=== PATIENT | male | born 1935 | race Caucasian/White ===

== ENCOUNTER 2018-01-23 16:32 | Inpatient (IN) | payer MEDICARE ==
[2018-01-23 18:38] LABS: APPEARANCE, URINE HAZY (CLEAR); BACTERIA, URINE AUTO NEGATIVE (NEGATIVE); BILIRUBIN, URINE AUTO NEGATIVE (NEGATIVE); BLOOD, URINE BLOOD NEGATIVE (NEGATIVE); COLOR, URINE YELLOW (YELLOW); GLUCOSE, URINE (UA) AUTO NEGATIVE (NEGATIVE); KETONE, URINE AUTO NEGATIVE (NEGATIVE); LEUKOCYTE ESTERASE, URINE AUTO NEGATIVE (NEGATIVE); MUCUS, URINE SMALL (NEGATIVE); NITRITE, URINE AUTO NEGATIVE (NEGATIVE); PROTEIN, URINE AUTO NEGATIVE (NEGATIVE); RBC, URINE AUTO 2 /HPF (0-3); SPECIFIC GRAVITY URINE AUTO 1.018 (1.002-1.035); SQUAMOUS EPITHELIAL CELL UR AU 0 /HPF (0-6); UROBILINOGEN, URINE AUTO 0.2 mg/dL (0.0-2.0); WBC, URINE AUTO 4 /HPF (0-3)
[2018-01-23] MEDS: SINEMET 25-100 MG TAB PO (20:55)
[2018-01-23] MEDS: lamoTRIgine 100MG TAB PO (20:55)
[2018-01-23] MEDS: rOPINIRole 1MG TAB PO (20:55)
[2018-01-23] MEDS: GABAPENTIN 400 MG CAP PO (20:55)
[2018-01-23] MEDS: ATORVASTATIN 20 MG TAB PO (20:55)
[2018-01-23] MEDS: PRIMIDONE 250 MG TAB PO (20:55)
[2018-01-24 07:07] LABS: BASO # 0.1 10^3/uL (0.0-0.2); EOS # 0.6 10^3/uL (0.0-0.50); EOS % 8.9 % (0.0-3.0); HEMATOCRIT 34.7 % (42.0-52.0); HEMOGLOBIN 11.7 g/dl (13.5-17.5); IMMATURE GRANULOCYTE % 0.6 % (0-3.0); LYMPH # 1.4 10^3/uL (1.5-4.5); LYMPH % 22.3 % (24.0-44.0); MEAN CORPUSCULAR HEMOGLOBIN 32.1 pg (27.0-33.0); MEAN CORPUSCULAR HGB CONC 33.7 g/dl (32.0-36.5); MEAN CORPUSCULAR VOLUME 95.3 fl (80.0-96.0); MONO # 0.7 10^3/uL (0.0-0.8); MONO % 11.6 % (0.0-5.0); NEUTROPHILS # 3.4 10^3/uL (1.8-7.7); NEUTROPHILS % 55.6 % (36.0-66.0); PLATELET COUNT, AUTOMATED 306 10^3/uL (150-450); RED BLOOD COUNT 3.64 10^6/uL (4.30-6.10); RED CELL DISTRIBUTION WIDTH 13.3 % (11.5-14.5); WHITE BLOOD COUNT 6.2 10^3/uL (4.0-10.0)
[2018-01-24 07:28] LABS: ALBUMIN 3.5 GM/DL (3.2-5.2); ALBUMIN/GLOBULIN RATIO 0.97 (1.00-1.93); ALKALINE PHOSPHATASE 96 U/L (45-117); ALT/SGPT 30 U/L (12-78); ANION GAP 9 MEQ/L (8-16); AST/SGOT 65 U/L (7-37); BILIRUBIN,TOTAL 0.4 MG/DL (0.2-1.0); BLOOD UREA NITROGEN 44 MG/DL (7-18); CALCIUM LEVEL 8.8 MG/DL (8.8-10.2); CARBON DIOXIDE LEVEL 26 MEQ/L (21-32); CHLORIDE LEVEL 108 MEQ/L (98-107); GLUCOSE, FASTING 99 MG/DL (70-100); POTASSIUM SERUM 3.9 MEQ/L (3.5-5.1); SODIUM LEVEL 143 MEQ/L (136-145); TOTAL PROTEIN 7.1 GM/DL (6.4-8.2)
[2018-01-24] MEDS: GABAPENTIN 400 MG CAP PO ×2 (09:17→20:11)
[2018-01-24] MEDS: FENOFIBRATE 145 MG TAB (TRICOR) PO (09:17)
[2018-01-24] MEDS: SINEMET 25-100 MG TAB PO ×4 (09:17→20:11)
[2018-01-24] MEDS: MULTIVITAMINS/MINERALS THERAP 1 TAB PO (09:17)
[2018-01-24] MEDS: SENOKOT S TAB PO (09:17)
[2018-01-24] MEDS: rOPINIRole 1MG TAB PO ×4 (09:17→20:11)
[2018-01-24] MEDS: amLODIPine 10 MG TAB PO (09:17)
[2018-01-24] MEDS: lamoTRIgine 100MG TAB PO ×2 (09:18→20:11)
[2018-01-24] MEDS: PRIMIDONE 125MG PER 1/2 TABLET PO (13:02)
[2018-01-24] MEDS: ENOXAPARIN 40 MG/0.4 ML SYRINGE (J1650) SC (17:36)
[2018-01-24] MEDS: PANTOPRAZOLE 40MG TAB (PROTONIX) PO (17:36)
[2018-01-24] MEDS: MYRBETRIQ 50 MG PO (20:10)
[2018-01-24] MEDS: ATORVASTATIN 20 MG TAB PO (20:11)
[2018-01-24] MEDS: PRIMIDONE 250 MG TAB PO (20:14)
[2018-01-25] MEDS: SINEMET 25-100 MG TAB PO ×4 (08:40→20:31)
[2018-01-25] MEDS: SENOKOT S TAB PO (08:40)
[2018-01-25] MEDS: lamoTRIgine 100MG TAB PO ×2 (08:40→20:31)
[2018-01-25] MEDS: FENOFIBRATE 145 MG TAB (TRICOR) PO (08:40)
[2018-01-25] MEDS: rOPINIRole 1MG TAB PO ×4 (08:40→20:30)
[2018-01-25] MEDS: PANTOPRAZOLE 40MG TAB (PROTONIX) PO (08:40)
[2018-01-25] MEDS: PRIMIDONE 125MG PER 1/2 TABLET PO (08:40)
[2018-01-25] MEDS: MULTIVITAMINS/MINERALS THERAP 1 TAB PO (08:40)
[2018-01-25] MEDS: GABAPENTIN 400 MG CAP PO ×2 (08:40→20:30)
[2018-01-25] MEDS: amLODIPine 10 MG TAB PO (08:41)
[2018-01-25] MEDS: ENOXAPARIN 40 MG/0.4 ML SYRINGE (J1650) SC (08:41)
[2018-01-25] MEDS: PRIMIDONE 250 MG TAB PO (20:30)
[2018-01-25] MEDS: ATORVASTATIN 20 MG TAB PO (20:31)
[2018-01-25] MEDS: MYRBETRIQ 50 MG PO (20:47)
[2018-01-26] MEDS: amLODIPine 10 MG TAB PO (09:00)
[2018-01-26] MEDS: amLODIPine 5 MG TAB PO ×2 (09:00→21:11)
[2018-01-26] MEDS: SINEMET 25-100 MG TAB PO ×4 (09:41→21:12)
[2018-01-26] MEDS: GABAPENTIN 400 MG CAP PO ×2 (09:41→21:10)
[2018-01-26] MEDS: MULTIVITAMINS/MINERALS THERAP 1 TAB PO (09:41)
[2018-01-26] MEDS: PRIMIDONE 125MG PER 1/2 TABLET PO (09:41)
[2018-01-26] MEDS: rOPINIRole 1MG TAB PO ×4 (09:41→21:10)
[2018-01-26] MEDS: SENOKOT S TAB PO (09:41)
[2018-01-26] MEDS: ENOXAPARIN 40 MG/0.4 ML SYRINGE (J1650) SC (09:41)
[2018-01-26] MEDS: FENOFIBRATE 145 MG TAB (TRICOR) PO (09:41)
[2018-01-26] MEDS: lamoTRIgine 100MG TAB PO ×2 (09:41→21:12)
[2018-01-26] MEDS: PANTOPRAZOLE 40MG TAB (PROTONIX) PO (09:41)
[2018-01-26] MEDS: PRIMIDONE 250 MG TAB PO (21:10)
[2018-01-26] MEDS: ATORVASTATIN 20 MG TAB PO (21:10)
[2018-01-26] MEDS: MYRBETRIQ 50 MG PO (21:11)
[2018-01-27] MEDS: ENOXAPARIN 40 MG/0.4 ML SYRINGE (J1650) SC (08:26)
[2018-01-27] MEDS: ACETAMINOPHEN TAB 650MG DOSE (2X325MG) PO ×2 (08:28→22:14)
[2018-01-27] MEDS: rOPINIRole 1MG TAB PO ×4 (08:29→22:12)
[2018-01-27] MEDS: PANTOPRAZOLE 40MG TAB (PROTONIX) PO (08:29)
[2018-01-27] MEDS: MULTIVITAMINS/MINERALS THERAP 1 TAB PO (08:29)
[2018-01-27] MEDS: lamoTRIgine 100MG TAB PO ×2 (08:29→22:13)
[2018-01-27] MEDS: SINEMET 25-100 MG TAB PO ×4 (08:29→22:13)
[2018-01-27] MEDS: FENOFIBRATE 145 MG TAB (TRICOR) PO (08:29)
[2018-01-27] MEDS: PRIMIDONE 125MG PER 1/2 TABLET PO (08:29)
[2018-01-27] MEDS: SENOKOT S TAB PO (08:29)
[2018-01-27] MEDS: amLODIPine 5 MG TAB PO ×2 (08:29→22:13)
[2018-01-27] MEDS: GABAPENTIN 400 MG CAP PO ×2 (08:29→22:12)
[2018-01-27] MEDS: PRIMIDONE 250 MG TAB PO (22:13)
[2018-01-27] MEDS: MYRBETRIQ 50 MG PO (22:13)
[2018-01-27] MEDS: ATORVASTATIN 20 MG TAB PO (22:14)
[2018-01-28] MEDS: rOPINIRole 1MG TAB PO ×4 (09:56→20:42)
[2018-01-28] MEDS: GABAPENTIN 400 MG CAP PO ×2 (09:56→20:43)
[2018-01-28] MEDS: SENOKOT S TAB PO (09:56)
[2018-01-28] MEDS: MULTIVITAMINS/MINERALS THERAP 1 TAB PO (09:56)
[2018-01-28] MEDS: amLODIPine 5 MG TAB PO ×2 (09:56→20:43)
[2018-01-28] MEDS: SINEMET 25-100 MG TAB PO ×4 (09:57→20:42)
[2018-01-28] MEDS: PANTOPRAZOLE 40MG TAB (PROTONIX) PO (09:57)
[2018-01-28] MEDS: lamoTRIgine 100MG TAB PO ×2 (09:57→20:42)
[2018-01-28] MEDS: ENOXAPARIN 40 MG/0.4 ML SYRINGE (J1650) SC (09:57)
[2018-01-28] MEDS: FENOFIBRATE 145 MG TAB (TRICOR) PO (09:57)
[2018-01-28] MEDS: PRIMIDONE 125MG PER 1/2 TABLET PO (09:59)
[2018-01-28] MEDS: ATORVASTATIN 20 MG TAB PO (20:42)
[2018-01-28] MEDS: ACETAMINOPHEN TAB 650MG DOSE (2X325MG) PO (20:42)
[2018-01-28] MEDS: MYRBETRIQ 50 MG PO (20:42)
[2018-01-28] MEDS: PRIMIDONE 250 MG TAB PO (20:42)
[2018-01-29] MEDS: LORazepam 2 MG/ML VIAL (J2060) IM (06:45)
[2018-01-29] MEDS: ENOXAPARIN 40 MG/0.4 ML SYRINGE (J1650) SC (08:35)
[2018-01-29] MEDS: PRIMIDONE 125MG PER 1/2 TABLET PO (08:37)
[2018-01-29] MEDS: FENOFIBRATE 145 MG TAB (TRICOR) PO (08:37)
[2018-01-29] MEDS: SENOKOT S TAB PO (08:38)
[2018-01-29] MEDS: amLODIPine 5 MG TAB PO ×2 (08:38→20:45)
[2018-01-29] MEDS: PANTOPRAZOLE 40MG TAB (PROTONIX) PO (08:38)
[2018-01-29] MEDS: lamoTRIgine 100MG TAB PO ×2 (08:38→20:45)
[2018-01-29] MEDS: SINEMET 25-100 MG TAB PO ×4 (08:38→20:45)
[2018-01-29] MEDS: MULTIVITAMINS/MINERALS THERAP 1 TAB PO (08:38)
[2018-01-29] MEDS: GABAPENTIN 400 MG CAP PO ×2 (08:38→20:45)
[2018-01-29] MEDS: rOPINIRole 1MG TAB PO ×4 (08:38→20:46)
[2018-01-29] MEDS: ATORVASTATIN 20 MG TAB PO (20:45)
[2018-01-29] MEDS: ACETAMINOPHEN TAB 650MG DOSE (2X325MG) PO (20:45)
[2018-01-29] MEDS: MYRBETRIQ 50 MG PO (20:46)
[2018-01-29] MEDS: PRIMIDONE 250 MG TAB PO (20:46)
[2018-01-30] MEDS: LORazepam 2 MG/ML VIAL (J2060) IM (00:46)
[2018-01-30] MEDS: rOPINIRole 1MG TAB PO ×4 (09:58→20:57)
[2018-01-30] MEDS: MULTIVITAMINS/MINERALS THERAP 1 TAB PO (09:58)
[2018-01-30] MEDS: amLODIPine 5 MG TAB PO ×2 (09:58→20:57)
[2018-01-30] MEDS: SENOKOT S TAB PO (09:58)
[2018-01-30] MEDS: PRIMIDONE 125MG PER 1/2 TABLET PO ×2 (09:58→20:56)
[2018-01-30] MEDS: PANTOPRAZOLE 40MG TAB (PROTONIX) PO (09:58)
[2018-01-30] MEDS: lamoTRIgine 100MG TAB PO ×2 (09:58→20:57)
[2018-01-30] MEDS: FENOFIBRATE 145 MG TAB (TRICOR) PO (09:58)
[2018-01-30] MEDS: SINEMET 25-100 MG TAB PO ×3 (09:58→20:57)
[2018-01-30] MEDS: GABAPENTIN 400 MG CAP PO (09:58)
[2018-01-30] MEDS: ENOXAPARIN 40 MG/0.4 ML SYRINGE (J1650) SC (09:58)
[2018-01-30] MEDS ORDERED: traZODone 25MG PER 1/2 TABLET PO (10:00)
[2018-01-30 10:40] LABS: BASO % 0.7 % (0.0-1.0); EOS # 0.3 10^3/uL (0.0-0.50); EOS % 5.8 % (0.0-3.0); HEMATOCRIT 33.7 % (42.0-52.0); HEMOGLOBIN 11.3 g/dl (13.5-17.5); IMMATURE GRANULOCYTE % 0.6 % (0-3.0); LYMPH # 0.9 10^3/uL (1.5-4.5); LYMPH % 16.7 % (24.0-44.0); MEAN CORPUSCULAR HEMOGLOBIN 32.7 pg (27.0-33.0); MEAN CORPUSCULAR HGB CONC 33.5 g/dl (32.0-36.5); MEAN CORPUSCULAR VOLUME 97.4 fl (80.0-96.0); MONO # 0.3 10^3/uL (0.0-0.8); MONO % 6.1 % (0.0-5.0); NEUTROPHILS # 3.8 10^3/uL (1.8-7.7); NEUTROPHILS % 70.1 % (36.0-66.0); PLATELET COUNT, AUTOMATED 309 10^3/uL (150-450); RED BLOOD COUNT 3.46 10^6/uL (4.30-6.10); RED CELL DISTRIBUTION WIDTH 13.3 % (11.5-14.5); WHITE BLOOD COUNT 5.4 10^3/uL (4.0-10.0)
[2018-01-30 11:20] LABS: ANION GAP 6 MEQ/L (8-16); BLOOD UREA NITROGEN 22 MG/DL (7-18); CALCIUM LEVEL 8.5 MG/DL (8.8-10.2); CARBON DIOXIDE LEVEL 29 MEQ/L (21-32); CHLORIDE LEVEL 108 MEQ/L (98-107); CREATININE FOR GFR 1.14 MG/DL (0.70-1.30); GLOMERULAR FILTRATION RATE > 60.0 (>35); GLUCOSE, FASTING 101 MG/DL (70-100); SODIUM LEVEL 143 MEQ/L (136-145)
[2018-01-30] MEDS: ASPIRIN 81 MG ENTERIC TAB PO (12:51)
[2018-01-30] MEDS: traZODone 25MG PER 1/2 TABLET PO (20:56)
[2018-01-30] MEDS: MYRBETRIQ 50 MG PO (20:57)
[2018-01-30] MEDS: GABAPENTIN 100 MG CAP PO (20:57)
[2018-01-30] MEDS: ATORVASTATIN 20 MG TAB PO (20:57)
[2018-01-30] MEDS: ACETAMINOPHEN TAB 650MG DOSE (2X325MG) PO (20:57)
[2018-01-30] MEDS: PRIMIDONE 250 MG TAB PO (20:59)
[2018-01-31] MEDS: traZODone 25MG PER 1/2 TABLET PO ×2 (01:43→20:31)
[2018-01-31] MEDS: SENOKOT S TAB PO (09:23)
[2018-01-31] MEDS: SINEMET 25-100 MG TAB PO ×3 (09:23→20:32)
[2018-01-31] MEDS: ENOXAPARIN 40 MG/0.4 ML SYRINGE (J1650) SC (09:23)
[2018-01-31] MEDS: GABAPENTIN 100 MG CAP PO ×2 (09:23→20:31)
[2018-01-31] MEDS: PANTOPRAZOLE 40MG TAB (PROTONIX) PO (09:24)
[2018-01-31] MEDS: amLODIPine 5 MG TAB PO ×2 (09:24→20:31)
[2018-01-31] MEDS: rOPINIRole 1MG TAB PO ×4 (09:24→20:32)
[2018-01-31] MEDS: FENOFIBRATE 145 MG TAB (TRICOR) PO (09:24)
[2018-01-31] MEDS: MULTIVITAMINS/MINERALS THERAP 1 TAB PO (09:24)
[2018-01-31] MEDS: lamoTRIgine 100MG TAB PO ×2 (09:25→20:31)
[2018-01-31] MEDS: MYRBETRIQ 50 MG PO (20:30)
[2018-01-31] MEDS: ATORVASTATIN 20 MG TAB PO (20:31)
[2018-01-31] MEDS: ACETAMINOPHEN TAB 650MG DOSE (2X325MG) PO (20:31)
[2018-01-31] MEDS: PRIMIDONE 250 MG TAB PO (20:31)
[2018-02-01] MEDS: traZODone 25MG PER 1/2 TABLET PO ×2 (02:01→20:13)
[2018-02-01 02:30] LABS: AMORPHOUS SEDIMENT RFX SMALL (NEGATIVE); KETONE, URINE AUTO RFX NEGATIVE (NEGATIVE); LEUKOCYTE ESTERASE UR AUTO RFX NEGATIVE (NEGATIVE); MUCUS, URINE RFX SMALL (NEGATIVE); NITRITE, URINE AUTO RFX NEGATIVE (NEGATIVE); RBC, URINE AUTO RFX 2 /HPF (0-3); SPECIFIC GRAVITY UR AUTO RFX 1.015 (1.002-1.035); SQUAM EPITHELIAL CELL UR AURFX 0 /HPF (0-6); WBC, URINE AUTO RFX 0 /HPF (0-3)
[2018-02-01] MEDS: SENOKOT S TAB PO (09:22)
[2018-02-01] MEDS: PANTOPRAZOLE 40MG TAB (PROTONIX) PO (09:22)
[2018-02-01] MEDS: GABAPENTIN 100 MG CAP PO ×2 (09:22→20:13)
[2018-02-01] MEDS: lamoTRIgine 100MG TAB PO ×2 (09:23→20:13)
[2018-02-01] MEDS: PRIMIDONE 125MG PER 1/2 TABLET PO (09:23)
[2018-02-01] MEDS: rOPINIRole 1MG TAB PO ×4 (09:23→20:13)
[2018-02-01] MEDS: SINEMET 25-100 MG TAB PO ×3 (09:23→20:13)
[2018-02-01] MEDS: MULTIVITAMINS/MINERALS THERAP 1 TAB PO (09:23)
[2018-02-01] MEDS: amLODIPine 5 MG TAB PO ×2 (09:23→20:13)
[2018-02-01] MEDS: ENOXAPARIN 40 MG/0.4 ML SYRINGE (J1650) SC (09:23)
[2018-02-01] MEDS: FENOFIBRATE 145 MG TAB (TRICOR) PO (09:23)
[2018-02-01] MEDS: ATORVASTATIN 20 MG TAB PO (20:12)
[2018-02-01] MEDS: MYRBETRIQ 50 MG PO (20:12)
[2018-02-01] MEDS: PRIMIDONE 250 MG TAB PO (20:13)
[2018-02-02] MEDS: traZODone 25MG PER 1/2 TABLET PO ×2 (01:58→20:30)
[2018-02-02] MEDS: rOPINIRole 1MG TAB PO ×4 (09:04→20:30)
[2018-02-02] MEDS: lamoTRIgine 100MG TAB PO ×2 (09:04→20:30)
[2018-02-02] MEDS: SINEMET 25-100 MG TAB PO ×3 (09:04→20:31)
[2018-02-02] MEDS: PANTOPRAZOLE 40MG TAB (PROTONIX) PO (09:04)
[2018-02-02] MEDS: SENOKOT S TAB PO (09:04)
[2018-02-02] MEDS: MULTIVITAMINS/MINERALS THERAP 1 TAB PO (09:04)
[2018-02-02] MEDS: FENOFIBRATE 145 MG TAB (TRICOR) PO (09:04)
[2018-02-02] MEDS: PRIMIDONE 125MG PER 1/2 TABLET PO (09:04)
[2018-02-02] MEDS: GABAPENTIN 100 MG CAP PO ×2 (09:04→20:31)
[2018-02-02] MEDS: ENOXAPARIN 40 MG/0.4 ML SYRINGE (J1650) SC (09:04)
[2018-02-02] MEDS: amLODIPine 5 MG TAB PO ×2 (09:05→20:31)
[2018-02-02] MEDS: MYRBETRIQ 50 MG PO (20:29)
[2018-02-02] MEDS: ATORVASTATIN 20 MG TAB PO (20:30)
[2018-02-02] MEDS: PRIMIDONE 250 MG TAB PO (20:37)
[2018-02-03] MEDS: traZODone 25MG PER 1/2 TABLET PO (01:53)
[2018-02-03] MEDS: FENOFIBRATE 145 MG TAB (TRICOR) PO (10:02)
[2018-02-03] MEDS: lamoTRIgine 100MG TAB PO ×2 (10:02→21:35)
[2018-02-03] MEDS: MULTIVITAMINS/MINERALS THERAP 1 TAB PO (10:02)
[2018-02-03] MEDS: PRIMIDONE 125MG PER 1/2 TABLET PO (10:02)
[2018-02-03] MEDS: rOPINIRole 1MG TAB PO ×4 (10:02→21:35)
[2018-02-03] MEDS: amLODIPine 5 MG TAB PO ×2 (10:02→21:35)
[2018-02-03] MEDS: GABAPENTIN 100 MG CAP PO ×2 (10:02→21:34)
[2018-02-03] MEDS: SINEMET 25-100 MG TAB PO ×3 (10:02→21:35)
[2018-02-03] MEDS: SENOKOT S TAB PO (10:03)
[2018-02-03] MEDS: ENOXAPARIN 40 MG/0.4 ML SYRINGE (J1650) SC (10:03)
[2018-02-03] MEDS: PANTOPRAZOLE 40MG TAB (PROTONIX) PO (10:03)
[2018-02-03] MEDS: MYRBETRIQ 50 MG PO (21:34)
[2018-02-03] MEDS: ATORVASTATIN 20 MG TAB PO (21:35)
[2018-02-03] MEDS: traZODone 50 MG TAB PO (21:35)
[2018-02-03] MEDS: PRIMIDONE 250 MG TAB PO (21:35)
[2018-02-04] MEDS: SINEMET 25-100 MG TAB PO ×3 (09:21→20:32)
[2018-02-04] MEDS: FENOFIBRATE 145 MG TAB (TRICOR) PO (09:21)
[2018-02-04] MEDS: PRIMIDONE 125MG PER 1/2 TABLET PO (09:21)
[2018-02-04] MEDS: rOPINIRole 1MG TAB PO ×4 (09:21→20:31)
[2018-02-04] MEDS: ENOXAPARIN 40 MG/0.4 ML SYRINGE (J1650) SC (09:21)
[2018-02-04] MEDS: lamoTRIgine 100MG TAB PO ×2 (09:21→20:32)
[2018-02-04] MEDS: amLODIPine 5 MG TAB PO ×2 (09:22→20:32)
[2018-02-04] MEDS: SENOKOT S TAB PO (09:22)
[2018-02-04] MEDS: GABAPENTIN 100 MG CAP PO ×2 (09:22→20:31)
[2018-02-04] MEDS: MULTIVITAMINS/MINERALS THERAP 1 TAB PO (09:22)
[2018-02-04] MEDS: PANTOPRAZOLE 40MG TAB (PROTONIX) PO (09:22)
[2018-02-04] MEDS: ATORVASTATIN 20 MG TAB PO (20:31)
[2018-02-04] MEDS: traZODone 50 MG TAB PO (20:31)
[2018-02-04] MEDS: PRIMIDONE 250 MG TAB PO (20:31)
[2018-02-04] MEDS: MYRBETRIQ 50 MG PO (20:31)
[2018-02-05] MEDS: SENOKOT S TAB PO (08:05)
[2018-02-05] MEDS: SINEMET 25-100 MG TAB PO ×3 (08:05→19:50)
[2018-02-05] MEDS: PRIMIDONE 125MG PER 1/2 TABLET PO (08:06)
[2018-02-05] MEDS: MULTIVITAMINS/MINERALS THERAP 1 TAB PO (08:06)
[2018-02-05] MEDS: lamoTRIgine 100MG TAB PO ×2 (08:06→19:50)
[2018-02-05] MEDS: FENOFIBRATE 145 MG TAB (TRICOR) PO (08:06)
[2018-02-05] MEDS: ENOXAPARIN 40 MG/0.4 ML SYRINGE (J1650) SC (08:06)
[2018-02-05] MEDS: rOPINIRole 1MG TAB PO ×4 (08:06→19:50)
[2018-02-05] MEDS: PANTOPRAZOLE 40MG TAB (PROTONIX) PO (08:06)
[2018-02-05] MEDS: amLODIPine 5 MG TAB PO ×2 (08:06→19:51)
[2018-02-05] MEDS: GABAPENTIN 100 MG CAP PO ×2 (09:40→19:51)
[2018-02-05] MEDS: ATORVASTATIN 20 MG TAB PO (19:50)
[2018-02-05] MEDS: PRIMIDONE 250 MG TAB PO (19:50)
[2018-02-05] MEDS: traZODone 50 MG TAB PO (19:50)
[2018-02-05] MEDS: MYRBETRIQ 50 MG PO (19:51)
[2018-02-06] MEDS: GABAPENTIN 100 MG CAP PO (08:24)
[2018-02-06] MEDS: ENOXAPARIN 40 MG/0.4 ML SYRINGE (J1650) SC (08:24)
[2018-02-06] MEDS: PRIMIDONE 125MG PER 1/2 TABLET PO (08:24)
[2018-02-06] MEDS: PANTOPRAZOLE 40MG TAB (PROTONIX) PO (08:24)
[2018-02-06] MEDS: SENOKOT S TAB PO (08:25)
[2018-02-06] MEDS: lamoTRIgine 100MG TAB PO ×2 (08:25→20:33)
[2018-02-06] MEDS: SINEMET 25-100 MG TAB PO ×3 (08:25→20:33)
[2018-02-06] MEDS: MULTIVITAMINS/MINERALS THERAP 1 TAB PO (08:25)
[2018-02-06] MEDS: FENOFIBRATE 145 MG TAB (TRICOR) PO (08:25)
[2018-02-06] MEDS: rOPINIRole 1MG TAB PO ×4 (08:26→20:33)
[2018-02-06] MEDS: amLODIPine 5 MG TAB PO ×2 (08:28→20:35)
[2018-02-06] MEDS: traZODone 50 MG TAB PO (20:32)
[2018-02-06] MEDS: ATORVASTATIN 20 MG TAB PO (20:33)
[2018-02-06] MEDS: PRIMIDONE 250 MG TAB PO (20:33)
[2018-02-06] MEDS: ACETAMINOPHEN TAB 650MG DOSE (2X325MG) PO (20:34)
[2018-02-06] MEDS: MYRBETRIQ 50 MG PO (20:54)
[2018-02-06] MEDS: traZODone 25MG PER 1/2 TABLET PO (23:00)
[2018-02-07] MEDS: ENOXAPARIN 40 MG/0.4 ML SYRINGE (J1650) SC (09:00)
[2018-02-07] MEDS: PRIMIDONE 125MG PER 1/2 TABLET PO (10:51)
[2018-02-07] MEDS: MULTIVITAMINS/MINERALS THERAP 1 TAB PO (10:51)
[2018-02-07] MEDS: SENOKOT S TAB PO (10:51)
[2018-02-07] MEDS: PANTOPRAZOLE 40MG TAB (PROTONIX) PO (10:51)
[2018-02-07] MEDS: SINEMET 25-100 MG TAB PO ×3 (10:52→20:44)
[2018-02-07] MEDS: rOPINIRole 1MG TAB PO ×4 (10:52→20:46)
[2018-02-07] MEDS: FENOFIBRATE 145 MG TAB (TRICOR) PO (10:52)
[2018-02-07] MEDS: amLODIPine 5 MG TAB PO ×2 (10:52→20:45)
[2018-02-07] MEDS: lamoTRIgine 100MG TAB PO ×2 (10:52→20:46)
[2018-02-07] MEDS: traZODone 50 MG TAB PO (20:44)
[2018-02-07] MEDS: ATORVASTATIN 20 MG TAB PO (20:45)
[2018-02-07] MEDS: MYRBETRIQ 50 MG PO (20:46)
[2018-02-07] MEDS: PRIMIDONE 250 MG TAB PO (20:46)
[2018-02-07] MEDS: ACETAMINOPHEN TAB 650MG DOSE (2X325MG) PO (23:32)
[2018-02-07] MEDS: traZODone 25MG PER 1/2 TABLET PO (23:32)
[2018-02-08] MEDS: lamoTRIgine 100MG TAB PO ×2 (08:13→21:37)
[2018-02-08] MEDS: rOPINIRole 1MG TAB PO ×4 (08:13→21:37)
[2018-02-08] MEDS: PRIMIDONE 125MG PER 1/2 TABLET PO (08:13)
[2018-02-08] MEDS: SENOKOT S TAB PO (08:13)
[2018-02-08] MEDS: FENOFIBRATE 145 MG TAB (TRICOR) PO (08:13)
[2018-02-08] MEDS: ENOXAPARIN 40 MG/0.4 ML SYRINGE (J1650) SC (08:13)
[2018-02-08] MEDS: SINEMET 25-100 MG TAB PO ×3 (08:13→21:37)
[2018-02-08] MEDS: PANTOPRAZOLE 40MG TAB (PROTONIX) PO (08:13)
[2018-02-08] MEDS: MULTIVITAMINS/MINERALS THERAP 1 TAB PO (08:13)
[2018-02-08] MEDS: amLODIPine 5 MG TAB PO (08:14)
[2018-02-08] MEDS: traZODone 25MG PER 1/2 TABLET PO (16:36)
[2018-02-08] MEDS: ATORVASTATIN 20 MG TAB PO (21:37)
[2018-02-08] MEDS: traZODone 50 MG TAB PO (21:37)
[2018-02-08] MEDS: amLODIPine 10 MG TAB PO (21:37)
[2018-02-08] MEDS: PRIMIDONE 250 MG TAB PO (21:37)
[2018-02-08] MEDS: MYRBETRIQ 50 MG PO (21:38)
[2018-02-09] MEDS: SINEMET 25-100 MG TAB PO ×3 (07:55→20:04)
[2018-02-09] MEDS: ENOXAPARIN 40 MG/0.4 ML SYRINGE (J1650) SC (07:55)
[2018-02-09] MEDS: rOPINIRole 1MG TAB PO ×4 (07:55→20:04)
[2018-02-09] MEDS: lamoTRIgine 100MG TAB PO ×2 (07:55→20:04)
[2018-02-09] MEDS: MULTIVITAMINS/MINERALS THERAP 1 TAB PO (07:55)
[2018-02-09] MEDS: PANTOPRAZOLE 40MG TAB (PROTONIX) PO (07:56)
[2018-02-09] MEDS: SENOKOT S TAB PO (07:57)
[2018-02-09] MEDS: FENOFIBRATE 145 MG TAB (TRICOR) PO (07:57)
[2018-02-09] MEDS: amLODIPine 10 MG TAB PO ×2 (07:58→20:04)
[2018-02-09] MEDS: PRIMIDONE 125MG PER 1/2 TABLET PO (08:01)
[2018-02-09] MEDS: PRIMIDONE 250 MG TAB PO (20:03)
[2018-02-09] MEDS: traZODone 50 MG TAB PO (20:04)
[2018-02-09] MEDS: MYRBETRIQ 50 MG PO (20:04)
[2018-02-09] MEDS: ATORVASTATIN 20 MG TAB PO (20:04)
[2018-02-10] MEDS: traZODone 25MG PER 1/2 TABLET PO (01:17)
[2018-02-10] MEDS: rOPINIRole 1MG TAB PO ×2 (08:38→13:14)
[2018-02-10] MEDS: FENOFIBRATE 145 MG TAB (TRICOR) PO (08:38)
[2018-02-10] MEDS: lamoTRIgine 100MG TAB PO (08:38)
[2018-02-10] MEDS: MULTIVITAMINS/MINERALS THERAP 1 TAB PO (08:38)
[2018-02-10] MEDS: PANTOPRAZOLE 40MG TAB (PROTONIX) PO (08:38)
[2018-02-10] MEDS: PRIMIDONE 125MG PER 1/2 TABLET PO (08:38)
[2018-02-10] MEDS: ENOXAPARIN 40 MG/0.4 ML SYRINGE (J1650) SC (08:38)
[2018-02-10] MEDS: SENOKOT S TAB PO (08:38)
[2018-02-10] MEDS: SINEMET 25-100 MG TAB PO (08:39)
[2018-02-10] MEDS: amLODIPine 10 MG TAB PO (08:39)
[2018-02-10] MEDS ORDERED: amLODIPine 5 MG TAB PO (21:00)
== END 2018-02-10 13:48 | disposition home health service (06) | DRG 949 ==
LOC: M PM&R 01-25 02:13
PROC: B31RYZZ Fluoroscopy of Intracranial Arteries using Other Contrast (ICD-10-PCS; principal; 2018-02-07)
DX: S06.6X0D Traumatic subarachnoid hemorrhage without loss of consciousness, subsequent encounter (principal); G91.2 (Idiopathic) normal pressure hydrocephalus; T85.09XA Other mechanical complication of ventricular intracranial (communicating) shunt, initial encounter; F02.80 Dementia in other diseases classified elsewhere, unspecified severity, without behavioral disturbance, psychotic disturbance, mood disturbance, and anxiety; G31.83 Neurocognitive disorder with Lewy bodies; E78.5 Hyperlipidemia, unspecified; I10 Essential (primary) hypertension; I25.10 Atherosclerotic heart disease of native coronary artery without angina pectoris; S02.0XXD Fracture of vault of skull, subsequent encounter for fracture with routine healing; R29.6 Repeated falls; G40.409 Other generalized epilepsy and epileptic syndromes, not intractable, without status epilepticus; R26.81 Unsteadiness on feet; R32 Unspecified urinary incontinence; W01.198D Fall on same level from slipping, tripping and stumbling with subsequent striking against other object, subsequent encounter; Y92.007 Garden or yard of unspecified non-institutional (private) residence as the place of occurrence of the external cause; H35.30 Unspecified macular degeneration; Y93.01 Activity, walking, marching and hiking; N32.81 Overactive bladder; Z95.1 Presence of aortocoronary bypass graft; Z79.82 Long term (current) use of aspirin; Z79.899 Other long term (current) drug therapy; Y83.1 Surgical operation with implant of artificial internal device as the cause of abnormal reaction of the patient, or of later complication, without mention of misadventure at the time of the procedure

== ENCOUNTER → 2018-12-27 | Outpatient (CLI) | payer MEDICARE ==
[~2018-12-27] MED LIST: ACET1TAB55 PO; ACET65TA OR; AKWASOL OU; AMLO10TA PO; AMLO5TAB6 PO; ASPI-161 PO; ASPI-524 PO; ASPI81TA83 OR; ASPI81TA83 PO; ATOR40TA75 PO; CARB25TA9 PO; CIPR250T3 OR; COLA100C5 PO; ENDOCET PO; ERYTOIN8 OD; FENO145T13 PO; FINA5TAB2 PO; FLAG500T OR; FLEXERIL PO; GABA-845 PO; LAMI1TAB7 OR; LAMI1TAB7 PO; LAMO100T PO; LIPI1TAB2 OR; LIPI1TAB2 PO; LIPI20TA PO; LOVE1INJ SC; MULT1TAB10 PO; MULTIVIT PO; MULTIVITAMEN PO; MYRB50TA PO; NITR0.4S SL; NITROQUICK SL; PANT40TA3 PO; PRIM125TAB PO; PRIM50TA4 OR; PRIM50TA4 PO; PRIM50TA6 PO; PRIMI25TA PO; PROT1TAB2 PO; PROT20TA11 PO; QUESTRAN PO; REQU1TAB16 PO; SENO8.6T5 PO; TRAZ1TAB10 PO; TRIC145T19 OR; TRIC145T19 PO; TRIC145T22 PO; VANC25CA OR; VITA500C; VITA500T OR; VITMTA PO; [UNRECOGNIZED DRUG - OTHER] TD; alphagan OU; myrbetriq OR; nitroquick SL
== END ==
LOC: M RAD 10:48
PROVIDERS: ATTEND Orthopaedic Surgery
DX: M48.02 Spinal stenosis, cervical region (principal)

== ENCOUNTER → 2019-01-22 | Outpatient (CLI) | payer MEDICARE ==
[~2019-01-22] MED LIST changes: -ASPI-524 PO; +ASPI325T57 PO
--- NOTE | 2019-01-22 15:34 | REP ---
Shunt series: Four views total with pre and post MRI imaging. History: Pre and post MRI shunt evaluation. Findings: A right ventriculostomy catheter is noted in place. No catheter discontinuity is seen. AP and lateral views of the skull and magnified lateral views are obtained. On the lateral views the shunt valve is well displayed. The shunt valve has moved on the post MRI lateral view relative to its position on the pre MRI. Impression: Shunt valve is in a different position post MRI than it was pre MRI. Electronically Signed by Zhao Butler MD 01/22/2019 03:25 P
--- NOTE | 2019-01-22 15:43 | REP ---
MRI cervical spine without contrast: History: Neck pain. History of ventriculoperitoneal shunt. Technique: Sagittal and axial T1 and T2-weighted scans are acquired in the usual fashion with and without fat saturation. Sequences include spin echo, turbo spin-echo, and STIR imaging sequences. MRI findings: There is straightening of the normal cervical lordosis. Cortical and medullary bone signal intensity are normal. Vertebral body heights are preserved. Alignment is otherwise normal. There is developmental partial fusion of the C2-3 disc level and the C2-3 facets appear fused bilaterally. Cervical cord is normal in coarse, caliber and signal intensity on T1 and T2-weighted scans. Craniocervical junction is unremarkable. Axial and sagittal images taken at the C3-4 intervertebral disc level demonstrate posterior osteophytic ridging and diffuse disc bulging. There is bilateral uncovertebral spurring producing foraminal narrowing. There is central canal stenosis. The midline AP dimension of the thecal sac at C3-4 is 8 mm. At C4-5, there is a broad disc bulge effacing the ventral subarachnoid space and flattening the ventral margin of the cord. There is central canal stenosis due to diffuse disc bulging, developmentally small canal and ligamentum flavum hypertrophy. The mid line AP dimension of the thecal sac at C4-5 is 7 mm. At C5-6, there is also degenerative disc disease with diffuse disc bulging and osteophytic ridging effacing the ventral margin of the cord and subarachnoid space. There is a left central focal disc protrusion extending somewhat caudally. There is bilateral uncovertebral spurring, left more so than right. Central canal stenosis is seen at this level as well. AP dimension of the thecal sac at C5-6 in the midline is 8 mm. At the C6-C7 level, there is mild posterior osteophytic ridging. No central canal stenosis is noted. Disc bulging is more prominent on the left. There is mild left-sided uncovertebral spurring. At C7-T1, there is diffuse disc bulging effacing the ventral subarachnoid space but not compressing the cord. Impression: Degenerative multilevel spondylosis changes. Mild central canal stenosis at C3-4, C4-5, C5-6 with multilevel neural foraminal narrowing. 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 Straightening. Electronically Signed by Zhao Butler MD 01/22/2019 05:18 P
== END ==
LOC: M RAD 12:39
PROVIDERS: ATTEND Orthopaedic Surgery
DX: M25.78 Osteophyte, vertebrae (principal); Z98.2 Presence of cerebrospinal fluid drainage device; M50.23 Other cervical disc displacement, cervicothoracic region; M48.02 Spinal stenosis, cervical region

== ENCOUNTER → 2019-10-24 | Outpatient (REF) | payer MEDICARE ==
[~2019-10-24] MED LIST changes: +AMLO1TAB24 PO; -AMLO5TAB6 PO; -FENO145T13 PO; +FENO145T7 PO; -LAMO100T PO; +LAMO100T3 PO; +PANT40TA29 PO; -PANT40TA3 PO
[2019-10-24 17:34] LABS: PERCENT SATURATION 21.4 % (19.7-50.0)
[2019-10-24 18:34] LABS: FOLATE 19.1 NG/ML
[2019-10-31 08:09] LABS: Methylmalonic Acid 467 nmol/L (0-378)
== END ==
LOC: M LAB REF 16:45
PROVIDERS: ATTEND Internal Medicine Nephrology
DX: D64.9 Anemia, unspecified (principal); N18.3 Chronic kidney disease, stage 3 (moderate); I12.9 Hypertensive chronic kidney disease with stage 1 through stage 4 chronic kidney disease, or unspecified chronic kidney disease

== ENCOUNTER → 2021-02-25 | Outpatient (REF) | payer MEDICARE ==
[~2021-02-25] MED LIST changes: +GABA-283 PO; -GABA-845 PO
== END ==
LOC: M LAB REF 17:03
PROVIDERS: ATTEND Internal Medicine Nephrology
DX: N18.31 Chronic kidney disease, stage 3a (principal)